=== PATIENT | male | born 1950 | race Hispanic/Latino ===

== ENCOUNTER 2024-09-05 17:56 | Emergency (ER) | payer MEDICARE ==
[~2024-09-05] VITALS: Ht 157.5 cm; Wt 97.1 kg
--- NOTE | 2024-09-05 18:14 | NUR ---
PT IS IN RM-19 NOW.
--- NOTE | 2024-09-05 18:19 | ERN ---
ED Note History of Present Illness Stated Complaint: HYPERTENSIVE/ DIZZY Chief Complaint: Hypertension Time Seen by MD: 17:58 Time Seen by Midlevel: 17:58 Dictation: The patient is a 74-year-old male with a history of hypertension, diabetes, hyperlipidemia who presents to the emergency department with complaints of elevated blood pressure, headache, dizziness onset last night. Patient reports that he has been having trouble with the his blood pressure for over a month have been trying to control his with the his primary doctor. Reports blood pressure in the 170s at home. Denies any head trauma, use of blood thinners, nausea or vomiting, chest pain or shortness of breath. Allergies: Coded Allergies: No Known Drug Allergies (Unverified Allergy, Unknown, 09/05/24) Past Medical History Past Medical History: Diabetes-Type II, High Cholesterol, Hypertension Surgical History: Other Surgical History Other: RT FLANK GRAFT RN Note Reviewed/Agreed w/PFSH: Yes Review of System Dictation Constitutional: Negative for fever,chills, and weight loss Eyes: Negative for injury, pain,redness, and discharge ENT: Negative for injury,pain or swelling Cardiovascular: Negative for chest pain, palpitations, and edema Respiratory: Negative for shortness of breath, cough, and wheezing, Abdomen/GI: Negative for abdominal pain, nausea, vomiting, diarrhea, and co nstipation Back: Negative for injury and pain : Negative for injury, bleeding and discharge MS/Extremity: Negative for injury and deformity Skin: Negative for rash, and discoloration Neuro: Negative for weakness, numbness, tingling, and seizure positive for dizziness, headache Psych: Negative for suicide ideation, homicidal ideation, and hallucinations Initial Vital Sign VS Vital Signs Date Time Temp Pulse Resp B/P (MAP) Pulse Ox O2 Delivery O2 Flow Rate FiO2 09/05/24 17:59 98.1 104 18 173/75 100 Room Air 0 Physical Exam Dictation Vital Signs reviewed General Appearance: Alert, oriented x 3, no acute distress, well developed, nourished. Head and Face: non-traumatic. Eyes: PERRL, pink conjunctivas, eyelid no trauma, anterior chamber with arcus senilis. Ears: Pinnas intact and no signs of trauma or erythema ear canals clear and no discharge TM no erythema Nose: No discharge, no bleeding. Oropharynx: Mouth normal, tongue pink. pharynx clear,no erythema, tonsils no exudates, no abscesses noted, mucous membrane moist Neck: Supple, non-tender, no thyromegaly, no masses, no JVD, no bruits Breast:Deferred Chest:No tenderness, no crepitus, no paradoxical movement, no retractions Lungs:Clear, well-ventilated, symmetric, no rales, no wheezing, no rhonchi, no stridor, good breath sounds bilaterally Heart: Regular rate, regular rhythm, no murmur, no gallops Vascular: no peripheral edema, Abdomen: Soft, positive bowel sounds, nondistended, no guarding, nontender, no rebound, no masses no hepatomegaly, no splenomegaly, no Elena's sign, no hernias. Rectal: Deferred Genital: Deferred Neurological: Normal speech, motor function intact, sensory function intact , upper extremities equal in strength, lower extremities equal in strength Musculoskeletal: Neck nontender, full range of motion, back nontender, full rang e of motion, Extremities: nontender, full range of motion Skin: Color pink, dry, no turgor, no rash, no lacerations, no abrasions, no contusions. Lymphatic: Deferred Results (Laboratory/Radiology) Laboratory/Radiology Laboratory Tests Test 09/05/24 18:24 09/05/24 19:56 White Blood Count 8.3 K/uL (4.8-10.8) Red Blood Count 5.17 MIL/uL (4.50-6.20) Hemoglobin 15.9 g/dL (14.0-18.0) Hematocrit 47.0 % (42-54) Mean Corpuscular Volume 90.9 fL (79-99) Mean Corpuscular Hemoglobin 30.8 pg (27.0-33.0) Mean Corpuscular Hemoglobin Concent 33.8 g/dL (32.0-36.0) Red Cell Distribution Width 12.9 % (11.0-15.5) Platelet Count 174 K/uL (130-400) Mean Platelet Volume 9.0 fL (7.5-10.5) Immature Granulocyte % (Auto) 0.5 % (0-1) Neutrophils (%) (Auto) 69.9 % (40.0-77.0) Lymphocytes (%) (Auto) 17.9 % (21.0-51.0) L Monocytes (%) (Auto) 8.6 % (3.0-13.0) Eosinophils (%) (Auto) 2.1 % (0.0-8.0) Basophils (%) (Auto) 1.0 % (0.0-5.0) Neutrophils # (Auto) 5.8 K/uL (1.8-7.7) Lymphocytes # (Auto) 1.5 K/uL (1.0-4.8) Monocytes # (Auto) 0.7 K/uL (0.1-1.0) Eosinophils # (Auto) 0.17 K/uL (0.00-0.70) Basophils # (Auto) 0.08 K/uL (0.00-0.20) Absolute Immature Granulocyte (auto 0.04 K/uL (0-1) Nucleated Red Blood Cells 0.0 % (0.0-0.19) Sodium Level 136 mmol/L (136-145) Potassium Level 3.4 mmol/L (3.5-5.1) L Chloride Level 100 mmol/L (101-111) L Carbon Dioxide Level 26 mmol/L (21-32) Blood Urea Nitrogen 16 mg/dL (7-18) Creatinine 0.9 mg/dL (0.5-1.3) Glomerular Filtration Rate Calc 90 mL/min (>90) Random Glucose 285 mg/dL (70-105) H Total Calcium 8.8 mg/dL (8.5-10.1) Magnesium Level 2.00 mg/dL (1.80-2.40) Total Creatine Kinase 90 U/L (21-232) Troponin I High Sensitivity 9 ng/L (4-75) B-Type Natriuretic Peptide 29 pg/mL (0-100) Urine Color LIGHT-YELLOW (YELLOW) Urine Appearance CLEAR (CLEAR) Urine pH 6.0 (5.0-8.0) Urine Specific Rye 1.019 (1.001-1.031) Urine Protein NEGATIVE mg/dL (NEGATIVE) Urine Glucose (UA) >=1000 mg/dL (NEGATIVE) H Urine Ketones NEGATIVE mg/dL (NEGATIVE) Urine Occult Blood NEGATIVE (NEGATIVE) Urine Nitrate NEGATIVE (NEGATIVE) Urine Bilirubin NEGATIVE mg/dL (NEGATIVE) Urine Urobilinogen 0.2 mg/dL (0.2-1.0) Urine Leukocyte Esterase NEGATIVE Joao/uL Urine RBC 0-1 /HPF (0-1) Urine WBC 0-1 /HPF (0-1) Urine Squamous Epithelial Cells RARE /HPF (0-2) Urine Bacteria None /HPF (None Seen) REASON: dizzy, headache ORDERING PHYSICIAN: DONG SCHERER PROCEDURE: HEAD WO - CT HEAD/BRAIN W/O CONTRAST CT HEAD/BRAIN W/O CONTRAST CLINICAL HISTORY: dizzy, headache COMPARISON: None TECHNIQUE: Multiple sequential axial images of the head were obtained from the base of the skull through vertex. CT was performed with one or more of the following dose reduction techniques: automated exposure control, adjustment of the mA and/or kV according to patient size, or use of iterative reconstruction technique FINDINGS: There is moderate atrophy and small vessel disease. The orbital contents, paranasal sinuses and mastoid air cells are within normal limits. The calvarium is intact. IMPRESSION: There are no acute findings. Labs Reviewed?: Yes EKG: (+) rhythm (Sinus rhythm) EKG Comment: Date:09/05/2024 Time:1855 Ventricular rate:86 PA interval:188 QRS duration:93 QT/QTc:384 EKG interpretation: Sinus rhythm, PACs Reviewed by ED Attending no STEMI ED Course ED Course Orders Procedure Category Date Status Time Cbc With Differential LAB 09/05/24 Complete 18:06 B-Type Natriuretic LAB 09/05/24 Complete Peptide 18:06 Chest 1vw RAD 09/05/24 Taken 18:06 12 Lead Ekg Tracing- EKG 09/05/24 Complete Technical 18:06 0.9%Nacl 1000ml (Ns PHA 09/05/24 In Process 1000ml) 18:30 Magnesium LAB 09/05/24 Complete 18:06 Creatine Kinase, Total LAB 09/05/24 Complete 18:06 Troponin I High LAB 09/05/24 Complete Sensitivity 18:06 Urinalysis Profile LAB 09/05/24 Complete 18:06 Basic Metabolic Panel LAB 09/05/24 Complete 18:06 Ct Head/Brain W/O CT 09/05/24 Resulted Contrast 18:06 Acetaminophen 500mg PHA 09/05/24 Complete Tab (Tylenol 500mg T 18:30 Hydralazine 20mg Inj PHA 09/05/24 Complete (Apresoline 20mg In 18:30 Potassium Bicarb/Cit PHA 09/05/24 Complete Ac 25meq (K-Lyte Ta 19:30 Current Medications Medications (Trade) Dose Ordered Sig/Marcial Route PRN Reason Start Time Stop Time Status Last Admin Dose Admin Acetaminophen (TYLenol 500MG TAB) 1,000 mg ONCE ONCE PO 09/05/24 18:30 09/05/24 18:31 DC 09/05/24 19:24 Hydralazine HCl (APRESOLine 20MG INJ) 10 mg ONCE ONCE IV 09/05/24 18:30 09/05/24 18:31 DC Potassium Bicarbonate (K-Lyte Tablet Eff 25 Meq Tablet.eff) 25 meq ONCE ONCE PO 09/05/24 19:30 09/05/24 19:31 DC 09/05/24 19:25 Sodium Chloride 1,000 ml @ 125 mls/hr ONCE ONCE IV 09/05/24 18:30 09/06/24 02:29 09/05/24 19:24 Vital Signs Date Time Temp Pulse Resp B/P (MAP) Pulse Ox O2 Delivery O2 Flow Rate FiO2 09/05/24 17:59 98.1 104 18 173/75 100 Room Air 0 Medical Decision Making MDM The patient is a 74-year-old male with a history of hypertension, diabetes, hyperlipidemia who presents to the emergency department with complaints of elevated blood pressure, headache, dizziness onset last night. Patient reports that he has been having trouble with the his blood pressure for over a month have been trying to control his with the his primary doctor. Reports blood pressure in the 170s at home. Denies any head trauma, use of blood thinners, nausea or vomiting, chest pain or shortness of breath. CBC showed no leukocytosis, no anemia, chemistry showed mild hypokalemia, mild hypochloremia, GFR of 90, glucose of 285, no DKA, negative troponin, negative BNP. Patient received a L of fluids in ER. Potassium replaced. CT showed no acute intracranial pathology. Patient reassessed. Blood pressure improved spon taneously to 140 systolic. Patient denies anymore dizziness or headache. Labs and imaging discussed with the patient and patient's family who agreed to be discharged and follow up with PCP for blood pressure monitoring. Patient in no acute distress. Stable vital signs. Nontoxic appearance. Differential diagnosis: Hypertensive urgency, intracerebral hemorrhage, dehydration, tachyarrhythmia, electrolyte imbalance Need for hospitalization: Patient does not meet criteria for hospitalization. There are no social concerns with this patient. DX & DISP Disposition: Discharge Departure Impression: Primary Impression: Headache Additional Impressions: Dizziness, Uncontrolled hypertension, Uncontrolled diabetes mellitus with hyperglycemia, Hypokalemia Condition: Stable Additional Instructions: Please follow up with the primary doctor in 1-2 days. If symptoms worsen please return to ER. FOLLOW-UP WITH PRIMARY CARE PROVIDER IN 1 TO 2 DAYS. TAKE MEDICATIONS DIRECTED HERE IN THE EMERGENCY ROOM. OKAY TO CONTINUE HOME MEDICATIONS UNLESS OTHERWISE DISCUSSED DURING YOUR VISIT IN THE EMERGENCY ROOM TODAY. RETURN TO YOUR NEAREST EMERGENCY ROOM IF SYMPTOMS WORSEN OR IF THERE IS NO IMPROVEMENT. CALL 911 IF YOU NEED IMMEDIATE ASSISTANCE. TAKE TYLENOL OR MOTRIN [id number] NEEDED AND IF NO CONTRAINDICATIONS ARE PRESENT. INCREASE ORAL HYDRATION. A WOUND CULTURE OR URINE CULTURE WAS ORDERED HERE IN THE EMERGENCY ROOM DEPARTMENT PLEASE FOLLOW-UP WITH PRIMARY CARE PROVIDER AND ADVISE THEM TO GET REPEAT PORTS FROM OUR FACILITY. IF YOU HAD ANY ROBI WRAP/SPLINTS THAT WERE APPLIED HERE, PLEASE DO NOT REMOVE THEM UNTIL YOU SEE YOUR PRIMARY CARE OR SPECIALTY. Referrals: SARI WHEELER MD (PCP) Time of Disposition: 20:39 I have reviewed the case, and I agree with, Diagnosis and Plan DONG SCHERER [facility] Sep 05, 2024 18:18
--- NOTE | 2024-09-05 18:34 | NUR ---
PT LEFT FOR CT SCAN.
[2024-09-05 18:35] LABS: BASOPHILS # (AUTO) 0.08 K/uL (0.00-0.20); EOSINOPHILS # (AUTO) 0.17 K/uL (0.00-0.70); EOSINOPHILS % (AUTO) 2.1 % (0.0-8.0); IMMATURE GRANULOCYTE ABSOLUTE 0.04 K/uL (0-1); LYMPHOCYTES # (AUTO) 1.5 K/uL (1.0-4.8); LYMPHOCYTES % (AUTO) 17.9 % (21.0-51.0); MEAN CORPUSCULAR HEMOGLOBIN 30.8 pg (27.0-33.0); MEAN CORPUSCULAR HGB CONC 33.8 g/dL (32.0-36.0); MEAN CORPUSCULAR VOLUME 90.9 fL (79-99); MONOCYTES # (AUTO) 0.7 K/uL (0.1-1.0); MONOCYTES % (AUTO) 8.6 % (3.0-13.0); NEUTROPHILS # (AUTO) 5.8 K/uL (1.8-7.7); NEUTROPHILS % (AUTO) 69.9 % (40.0-77.0); PLATELET COUNT (AUTO) 174 K/uL (130-400); RED BLOOD CELL COUNT(AUTO) 5.17 MIL/uL (4.50-6.20); RED CELL DISTRIBUTION WIDTH 12.9 % (11.0-15.5); WHITE BLOOD COUNT (AUTO) 8.3 K/uL (4.8-10.8)
[2024-09-05 18:46] LABS: CREATININE 0.9 mg/dL (0.5-1.3); POTASSIUM 3.4 mmol/L (3.5-5.1)
--- NOTE | 2024-09-05 18:46 | NUR ---
PT RETURNED FROM CT SCAN.
--- NOTE | 2024-09-05 18:56 | HMCIMG ---
CT HEAD/BRAIN W/O CONTRAST CLINICAL HISTORY: dizzy, headache COMPARISON: None TECHNIQUE: Multiple sequential axial images of the head were obtained from the base of the skull through vertex. CT was performed with one or more of the following dose reduction techniques: automated exposure control, adjustment of the mA and/or kV according to patient size, or use of iterative reconstruction technique FINDINGS: There is moderate atrophy and small vessel disease. The orbital contents, paranasal sinuses and mastoid air cells are within normal limits. The calvarium is intact. IMPRESSION: There are no acute findings.
--- NOTE | 2024-09-05 18:57 | EKG ---
[facility] Test Date: 2024-09-05 Test Time: 18:55:36 Pat Name: LUCY PETERSON Department: ED Room: Gender: M Sort Worker: [id number] : [id number] Requested By: DONG SCHERER Order Number: [id number] Reading MD: Nila Galvan Measurements Intervals [place] Rate: 86 P: 31 CT: 188 QRS: -54 QRSD: 93 T: 48 QT: 384 QTc: 442 Interpretive Statements Sinus rhythm Atrial premature complexes Inferior infarct, old No previous ECG available for comparison Electronically Signed On 09-07-2024 12:38:10 CDT by Nila Galvan Please click the below link to view image of tracing.
[2024-09-05 19:04] LABS: B-TYPE NATRIURETIC PEPTIDE 29 pg/mL (0-100)
[2024-09-05] MEDS: 0.9%NACL 1000ML 1,000 ML IV ONE (19:24)
[2024-09-05] MEDS: acetaMINOPHEN 500 MG TABLET PO ONE (19:24)
[2024-09-05] MEDS: PoTASSium BIcarbonate/CIT AC 25 MEQ TABLET.EFF PO ONE (19:25)
[2024-09-05] MEDS: hydrALAZine 20MG/ML VIAL IV ONE (19:31)
[2024-09-05 20:24] LABS: APPEARANCE,URINE CLEAR (CLEAR); BILIRUBIN,URINE NEGATIVE (NEGATIVE); COLOR,URINE LIGHT-YELLOW (YELLOW); GLUCOSE, URINE (UA) >=1000 mg/dL (NEGATIVE); KETONES,URINE NEGATIVE (NEGATIVE); LEUKOCYTE ESTERASE ,URINE NEGATIVE Leu/uL (NEGATIVE); NITRATE,URINE NEGATIVE (NEGATIVE); OCCULT BLOOD,URINE NEGATIVE (NEGATIVE); PROTEIN,URINE NEGATIVE (NEGATIVE); UROBILINOGEN,URINE 0.2 mg/dL (0.2-1.0)
[2024-09-05 20:27] LABS: ADD UA MICROSCOPIC YES
[2024-09-05 20:33] LABS: MUCUS,URINE RARE LPF (None Seen); RBC,URINE 0-1 /HPF (0-1); SQUAMOUS EPITHELIAL CELL,UR RARE /HPF (0-2); WBC,URINE 0-1 /HPF (0-1)
[2024-09-05 20:54] VITALS: BP 141/75; PULSE 78; RESP 18; TEMP 98.3; O2SAT 96
--- NOTE | 2024-09-05 21:20 | HMCIMG ---
CHEST 1VW CLINICAL HISTORY: htn COMPARISON: None TECHNIQUE: Single view of the chest was obtained. FINDINGS: Lungs are clear. The cardiac size and mediastinum are unremarkable. There is mild degenerative changes in the spine. IMPRESSION: No acute cardiopulmonary process identified.
== END 2024-09-05 21:07 | disposition home or self-care (01) ==
LOC: EDH 17:56
DX: R42 Dizziness and giddiness (principal); R51.9 Headache, unspecified; I10 Essential (primary) hypertension; E11.65 Type 2 diabetes mellitus with hyperglycemia; E87.6 Hypokalemia; E78.00 Pure hypercholesterolemia, unspecified; Z98.890 Other specified postprocedural states
CPT/HCPCS: 99285; 96360; 70450; 71045; 82550; 83735; 84484; 80048; 83880; 85025; 81001; 36415; 93005; J7030